=== PATIENT | male | born 1950 | race Caucasian/White ===

== ENCOUNTER → 2020-10-22 | Outpatient (CLI) | payer MEDICARE, OTHER | LOC: EXRD 11:20 | DX: M47.26 Other spondylosis with radiculopathy, lumbar region (principal); R29.898 Other symptoms and signs involving the musculoskeletal system; R20.2 Paresthesia of skin | CPT/HCPCS: 72100 ==

== ENCOUNTER → 2020-12-04 | Outpatient (CLI) | payer MEDICARE, OTHER | LOC: MRI 08:00 | DX: R29.2 Abnormal reflex (principal); M54.16 Radiculopathy, lumbar region; R20.0 Anesthesia of skin; R20.2 Paresthesia of skin; M47.816 Spondylosis without myelopathy or radiculopathy, lumbar region | CPT/HCPCS: 72148 ==

== ENCOUNTER → 2021-11-25 | Outpatient (CLI) | payer MEDICARE, OTHER | LOC: EXRD 12:59 | DX: R13.10 Dysphagia, unspecified (principal); R22.0 Localized swelling, mass and lump, head; R22.1 Localized swelling, mass and lump, neck | CPT/HCPCS: 76536 ==